=== PATIENT | female | born 1990 | race African-American/Black ===

== ENCOUNTER 2019-06-15 09:57 | Inpatient (IN) | payer BC, MEDICAID ==
[~2019-06-15] VITALS: Ht 157.5 cm; Wt 54.4 kg
[2019-06-15] MEDS ORDERED: ONDANSETRON HCL 4MG/2ML INJ IV STA (11:00)
[2019-06-15] MEDS ORDERED: MORPHINE SULFATE 4 MG/ML CPJ (NOT FOR IM USE) IV STA (11:00)
[2019-06-15] MEDS ORDERED: SODIUM CHLORIDE 0.9% 1,000 ML IV ONE (11:00)
[2019-06-15 11:29] LABS: CHLORIDE 110 mEq/L (98-107)
[2019-06-15 11:33] LABS: PROTHROMBIN TIME 10.8 sec (9.6-11.0)
[2019-06-15 11:45] LABS: BASOPHILS % 0.4 % (0.0-2.0); EOSINOPHILS % 0.7 % (0.0-5.0); HEMATOCRIT. 33.2 % (36.0-48.0); HEMOGLOBIN. 10.7 g/dL (12.0-16.0); LYMPHOCYTES % 23.9 % (20.0-50.0); MEAN CORPUSCULAR HEMOGLOBIN 23.3 pg (28.0-32.0); MEAN CORPUSCULAR VOLUME 72.4 fL (81.0-99.0); MONOCYTES % 3.7 % (2.0-8.0); NEUTROPHILS % 71.3 % (40.0-76.0); PLATELET 360 x1000/uL (130-400); RED BLOOD CELL COUNT 4.58 mill/uL (4.2-5.4); RED CELL DISTRIBUTION WIDTH 14.7 % (11.6-14.6)
[2019-06-15] MEDS ORDERED: KETOROLAC 30MG/ML VIAL IV ONE (12:00)
[2019-06-15 13:31] LABS: CLARITY URINE CLEAR (CLEAR); COLOR URINE YELLOW (YELLOW); KETONES URINE 1+ (NEGATIVE); LEUKOCYTE ESTERASE URINE NEGATIVE (NEGATIVE); NITRITE URINE NEGATIVE (NEGATIVE); OCCULT BLOOD URINE 1+ (NEGATIVE); PH URINE 6.5 (4.5-8.0); PROTEIN URINE NEGATIVE (NEGATIVE); SPECIFIC GRAVITY URINE 1.018 (1.005-1.030); UROBILINOGEN URINE 0.2 E.U./dL (0.2-1.0)
[2019-06-15 13:31] LABS: HCG SCREEN NEGATIVE
[2019-06-15] MEDS ORDERED: METOCLOPRAMIDE HCL 10MG/2ML VIAL IV ONE (14:00)
[2019-06-15] MEDS ORDERED: MORPHINE SULFATE 4 MG/ML CPJ (NOT FOR IM USE) IV ONE (14:00)
[2019-06-15] MEDS ORDERED: POTASSIUM CHLORIDE 20MEQ TABLET SR PO NR ×2 (16:30→18:00)
[2019-06-15] MEDS ORDERED: ACETAMINOPHEN 325MG TABLET PO PRN (16:30)
[2019-06-15] MEDS: MORPHINE SULFATE 2 MG/ML CPJ (NOT FOR IM USE) IV PRN ×2 (17:40→22:12)
[2019-06-15 20:00] VITALS: BP 118/79
[2019-06-15] MEDS: ONDANSETRON HCL 4MG/2ML INJ IV PRN (22:12)
[2019-06-16] VITALS (7 sets, daily range): BP systolic 98–159; BP diastolic 52–91
[2019-06-16] MEDS: MORPHINE SULFATE 2 MG/ML CPJ (NOT FOR IM USE) IV PRN ×3 (03:07→12:51)
[2019-06-16] MEDS: DEXT 5%/0.45% NACL 1000ML 1,000 ML IV SCH ×3 (03:15→22:01)
[2019-06-16 06:16] LABS: CHLORIDE 106 mEq/L (98-107)
[2019-06-16 10:03] LABS: *BARBITURATES SCREEN URINE NEGATIVE (NEGATIVE); *BENZODIAZEPINES SCREEN URINE NEGATIVE (NEGATIVE)
[2019-06-16 10:04] LABS: METHADONE URINE SCREEN NEGATIVE (NEGATIVE); PHENCYCLIDINE URINE SCREEN NEGATIVE (NEGATIVE)
[2019-06-16 10:11] LABS: *COCAINE SCREEN URINE NEGATIVE (NEGATIVE)
[2019-06-16 10:18] LABS: *AMPHETAMINES SCREEN URINE NEGATIVE (NEGATIVE)
[2019-06-16 10:25] LABS: CANNABINOID URINE SCREEN PRESUMTIVE POSITIVE (NEGATIVE); OPIATES URINE SCREEN PRESUMTIVE POSITIVE (NEGATIVE)
[2019-06-16 11:37] LABS: BASOPHILS % 0.1 % (0.0-2.0); EOSINOPHILS % 0.2 % (0.0-5.0); HEMATOCRIT. 31.4 % (36.0-48.0); HEMOGLOBIN. 10.1 g/dL (12.0-16.0); LYMPHOCYTES % 13.3 % (20.0-50.0); MEAN CORPUSCULAR HEMOGLOBIN 23.1 pg (28.0-32.0); MEAN CORPUSCULAR VOLUME 71.7 fL (81.0-99.0); MEAN PLATELET VOLUME 8.1 fl (7.4-10.4); NEUTROPHILS % 80.4 % (40.0-76.0); PLATELET 319 x1000/uL (130-400); RED BLOOD CELL COUNT 4.37 mill/uL (4.2-5.4); RED CELL DISTRIBUTION WIDTH 14.9 % (11.6-14.6)
[2019-06-16] MEDS: LEVOFLOXACIN 500MG PREMIX 100 ML IV SCH (18:00)
[2019-06-16] MEDS: MORPHINE SULFATE 4 MG/ML CPJ (NOT FOR IM USE) IV PRN ×2 (18:01→21:55)
[2019-06-16] MEDS: ONDANSETRON HCL 4MG/2ML INJ IV PRN (21:54)
[2019-06-16] MEDS: METRONIDAZOLE 500 MG PREMIX 100 ML IV SCH (22:02)
[2019-06-17] VITALS: BP 101/61
[2019-06-17 04:00] VITALS: BP 101/71
[2019-06-17 06:28] LABS: BASOPHILS % 0.2 % (0.0-2.0); EOSINOPHILS % 0.8 % (0.0-5.0); HEMATOCRIT. 29.7 % (36.0-48.0); HEMOGLOBIN. 9.7 g/dL (12.0-16.0); LYMPHOCYTES % 29.8 % (20.0-50.0); MEAN CORPUSCULAR HEMOGLOBIN 23.5 pg (28.0-32.0); MEAN PLATELET VOLUME 8.1 fl (7.4-10.4); MONOCYTES % 7.6 % (2.0-8.0); NEUTROPHILS % 61.6 % (40.0-76.0); PLATELET 326 x1000/uL (130-400); RED BLOOD CELL COUNT 4.13 mill/uL (4.2-5.4); RED CELL DISTRIBUTION WIDTH 14.7 % (11.6-14.6)
[2019-06-17] MEDS: METRONIDAZOLE 500 MG PREMIX 100 ML IV SCH ×3 (06:41→23:18)
[2019-06-17 07:21] LABS: CHLORIDE 106 mEq/L (98-107)
[2019-06-17 08:00] VITALS: BP 101/62
[2019-06-17] MEDS: DEXT 5%/0.45% NACL 1000ML 1,000 ML IV SCH (08:50)
[2019-06-17] MEDS: MORPHINE SULFATE 4 MG/ML CPJ (NOT FOR IM USE) IV PRN (08:51)
[2019-06-17] MEDS: ONDANSETRON HCL 4MG/2ML INJ IV PRN ×2 (11:10→23:25)
[2019-06-17] MEDS ORDERED: POTASSIUM CHLORIDE 20MEQ TABLET SR PO SCH (11:30)
[2019-06-17 12:00] VITALS: BP 147/76
[2019-06-17] MEDS: HYDROMORPHONE HCL/PF 2MG/ML CPJ IV PRN ×2 (12:19→19:57)
[2019-06-17 16:00] VITALS: BP 105/61
[2019-06-17] MEDS: LEVOFLOXACIN 500MG PREMIX 100 ML IV SCH (16:59)
[2019-06-17 20:00] VITALS: BP 122/78
[2019-06-18] VITALS: BP 121/74
[2019-06-18] MEDS: HYDROMORPHONE HCL/PF 2MG/ML CPJ IV PRN (00:11)
[2019-06-18 04:00] VITALS: BP_SYST 102; BP_SYST 170; BP_DIAS 54; BP_DIAS 62
[2019-06-18] MEDS: METRONIDAZOLE 500 MG PREMIX 100 ML IV SCH (06:30)
[2019-06-18 07:35] LABS: CHLORIDE 106 mEq/L (98-107)
[2019-06-18 07:41] LABS: TOTAL IRON BINDING CAPACITY 320 ug/dL (250-450)
[2019-06-18 07:48] LABS: BASOPHILS % 0.3 % (0.0-2.0); EOSINOPHILS % 1.6 % (0.0-5.0); HEMATOCRIT. 30.8 % (36.0-48.0); HEMOGLOBIN. 10.1 g/dL (12.0-16.0); MEAN CORPUSCULAR HEMOGLOBIN 23.5 pg (28.0-32.0); MEAN CORPUSCULAR VOLUME 71.8 fL (81.0-99.0); MEAN PLATELET VOLUME 7.8 fl (7.4-10.4); MONOCYTES % 7.3 % (2.0-8.0); NEUTROPHILS % 64.8 % (40.0-76.0); PLATELET 336 x1000/uL (130-400); RED BLOOD CELL COUNT 4.28 mill/uL (4.2-5.4); RED CELL DISTRIBUTION WIDTH 14.3 % (11.6-14.6)
[2019-06-18 08:00] VITALS: BP 112/68
[2019-06-18] MEDS: DEXT 5%/0.45% NACL 1000ML 1,000 ML IV SCH (10:00)
[2019-06-18 11:38] VITALS: BP 116/61
[2019-06-18 12:39] VITALS: BP 116/61
== END 2019-06-18 13:49 | disposition home or self-care (01) | DRG 392 ==
LOC: ER 09:57 → ENRESERV 16:10 → 6EST 17:32
PROVIDERS: ADMIT Internal Medicine; ATTEND Internal Medicine
DX: K52.9 Noninfective gastroenteritis and colitis, unspecified (principal); E87.6 Hypokalemia; E87.8 Other disorders of electrolyte and fluid balance, not elsewhere classified; F12.90 Cannabis use, unspecified, uncomplicated; D50.9 Iron deficiency anemia, unspecified; I10 Essential (primary) hypertension; Z90.49 Acquired absence of other specified parts of digestive tract
CPT/HCPCS: 36415; 74176; 80048; 80305; 82728; 83036; 83540; 83550; 84145; 84703; 96374; 99285; C1893; J1170; J1885; J1956; J2270; J2405; J2765; J3490; J7030

== ENCOUNTER 2019-08-06 17:36 | Emergency (ER) | payer BC, MEDICAID ==
[~2019-08-06] VITALS: Ht 157.5 cm; Wt 57.0 kg
[2019-08-06] MEDS ORDERED: MORPHINE SULFATE 4 MG/ML CPJ (NOT FOR IM USE) IV STA (19:59)
[2019-08-06] MEDS ORDERED: SODIUM CHLORIDE 0.9% 1,000 ML IV ONE (19:59)
[2019-08-06] MEDS ORDERED: FAMOTIDINE 20MG/2ML VIAL IV STA (19:59)
[2019-08-06] MEDS ORDERED: ONDANSETRON HCL 4MG/2ML INJ IV STA (19:59)
[2019-08-06 20:32] LABS: BASOPHILS % 0.3 % (0.0-2.0); EOSINOPHILS % 0.1 % (0.0-5.0); HEMATOCRIT. 34.9 % (36.0-48.0); HEMOGLOBIN. 11.3 g/dL (12.0-16.0); MEAN CORPUSCULAR HEMOGLOBIN 23.4 pg (28.0-32.0); MEAN PLATELET VOLUME 8.1 fl (7.4-10.4); MONOCYTES % 1.4 % (2.0-8.0); NEUTROPHILS % 89.2 % (40.0-76.0); PLATELET 309 x1000/uL (130-400); RED BLOOD CELL COUNT 4.84 mill/uL (4.2-5.4); RED CELL DISTRIBUTION WIDTH 14.5 % (11.6-14.6)
[2019-08-06 20:33] LABS: CHLORIDE 106 mEq/L (98-107)
[2019-08-06 20:34] LABS: PROTHROMBIN TIME 10.7 sec (9.6-11.0)
[2019-08-06 20:36] LABS: HCG SCREEN NEGATIVE
[2019-08-06 20:37] LABS: ETHANOL BLOOD < 10 mg/dL
[2019-08-06 21:01] LABS: CLARITY URINE CLEAR (CLEAR); COLOR URINE YELLOW (YELLOW); KETONES URINE TRACE (NEGATIVE); LEUKOCYTE ESTERASE URINE NEGATIVE (NEGATIVE); NITRITE URINE NEGATIVE (NEGATIVE); OCCULT BLOOD URINE 1+ (NEGATIVE); PH URINE 7.5 (4.5-8.0); PROTEIN URINE TRACE (NEGATIVE); UROBILINOGEN URINE 0.2 E.U./dL (0.2-1.0)
[2019-08-06 21:21] LABS: *COCAINE SCREEN URINE NEGATIVE (NEGATIVE); METHADONE URINE SCREEN NEGATIVE (NEGATIVE)
[2019-08-06 21:22] LABS: *AMPHETAMINES SCREEN URINE NEGATIVE (NEGATIVE); *BARBITURATES SCREEN URINE NEGATIVE (NEGATIVE); *BENZODIAZEPINES SCREEN URINE NEGATIVE (NEGATIVE); PHENCYCLIDINE URINE SCREEN NEGATIVE (NEGATIVE)
[2019-08-06 21:28] LABS: CANNABINOID URINE SCREEN PRESUMTIVE POSITIVE (NEGATIVE); OPIATES URINE SCREEN PRESUMTIVE POSITIVE (NEGATIVE)
[2019-08-07] MEDS ORDERED: KETOROLAC 30MG/ML VIAL IV ONE (00:30)
[2019-08-07 01:37] VITALS: BP 141/78
[2019-08-07] MEDS ORDERED: MAGNESIUM/ALUMINUM HYDROXIDE/SIMETHICONE 30ML UDC PO ONE (01:45)
== END 2019-08-07 02:00 | disposition home or self-care (01) ==
LOC: ER 17:36
DX: R10.13 Epigastric pain (principal); R11.2 Nausea with vomiting, unspecified; D64.9 Anemia, unspecified; I10 Essential (primary) hypertension; F17.200 Nicotine dependence, unspecified, uncomplicated; F12.10 Cannabis abuse, uncomplicated; Z90.49 Acquired absence of other specified parts of digestive tract
CPT/HCPCS: 36415; 74176; 80053; 80305; 80320; 81003; 81025; 83690; 84703; 85025; 85610; 96361; 96374; 96375; 99291; 99406; J1885; J2270; J2405; J3490; J7030; Z7610; G0480

== ENCOUNTER 2019-08-07 02:44 | Emergency (ER) | payer BC, MEDICAID ==
[~2019-08-07] VITALS: Ht 157.5 cm; Wt 58.0 kg
[2019-08-07] MEDS ORDERED: KETOROLAC 30MG/ML VIAL IM STA (06:26)
[2019-08-07 07:18] LABS: BASOPHILS % 0.3 % (0.0-2.0); EOSINOPHILS % 0.1 % (0.0-5.0); HEMATOCRIT. 32.4 % (36.0-48.0); HEMOGLOBIN. 10.6 g/dL (12.0-16.0); LYMPHOCYTES % 13.1 % (20.0-50.0); MEAN CORPUSCULAR HEMOGLOBIN 23.5 pg (28.0-32.0); MEAN CORPUSCULAR VOLUME 71.8 fL (81.0-99.0); MEAN PLATELET VOLUME 7.7 fl (7.4-10.4); MONOCYTES % 5.1 % (2.0-8.0); NEUTROPHILS % 81.4 % (40.0-76.0); PLATELET 290 x1000/uL (130-400); RED BLOOD CELL COUNT 4.51 mill/uL (4.2-5.4); RED CELL DISTRIBUTION WIDTH 14.2 % (11.6-14.6)
[2019-08-07 07:25] LABS: CHLORIDE 107 mEq/L (98-107)
[2019-08-07 09:03] VITALS: BP 120/85
== END 2019-08-07 09:10 | disposition home or self-care (01) ==
LOC: ER 02:44
DX: R10.13 Epigastric pain (principal); R11.2 Nausea with vomiting, unspecified; F17.200 Nicotine dependence, unspecified, uncomplicated; F12.10 Cannabis abuse, uncomplicated; Z90.49 Acquired absence of other specified parts of digestive tract
CPT/HCPCS: 36415; 71045; 76705; 80053; 81025; 83690; 85025; 96372; 99284; J1885; Z7610

== ENCOUNTER 2019-10-01 17:49 | Emergency (ER) | payer BC, MEDICAID ==
[~2019-10-01] VITALS: Ht 167.6 cm; Wt 79.0 kg
[2019-10-01] MEDS ORDERED: MORPHINE SULFATE 4 MG/ML CPJ (NOT FOR IM USE) IV STA (18:07)
[2019-10-01] MEDS ORDERED: SODIUM CHLORIDE 0.9% 1,000 ML IV ONE (18:07)
[2019-10-01] MEDS ORDERED: ONDANSETRON HCL 4MG/2ML INJ IV STA (18:07)
[2019-10-01 18:43] LABS: BASOPHILS % 0.2 % (0.0-2.0); EOSINOPHILS % 0.1 % (0.0-5.0); HEMATOCRIT. 36.1 % (36.0-48.0); HEMOGLOBIN. 11.8 g/dL (12.0-16.0); LYMPHOCYTES % 16.4 % (20.0-50.0); MEAN CORPUSCULAR HEMOGLOBIN 23.1 pg (28.0-32.0); MEAN CORPUSCULAR VOLUME 70.8 fL (81.0-99.0); MEAN PLATELET VOLUME 7.6 fl (7.4-10.4); MONOCYTES % 4.4 % (2.0-8.0); NEUTROPHILS % 78.9 % (40.0-76.0); PLATELET 372 x1000/uL (130-400); RED BLOOD CELL COUNT 5.09 mill/uL (4.2-5.4); RED CELL DISTRIBUTION WIDTH 14.4 % (11.6-14.6)
[2019-10-01 18:47] LABS: CHLORIDE 104 mEq/L (98-107)
[2019-10-01 18:49] LABS: INR 1.1; PROTHROMBIN TIME 11.1 sec (9.6-11.0)
[2019-10-01] MEDS ORDERED: POTASSIUM CHLORIDE 20MEQ TABLET SR PO NR (19:45)
[2019-10-01] MEDS ORDERED: KETOROLAC 30MG/ML VIAL IV NR (19:45)
[2019-10-01 20:34] VITALS: BP 115/79
== END 2019-10-01 20:41 | disposition home or self-care (01) ==
LOC: ER 17:49
DX: K52.9 Noninfective gastroenteritis and colitis, unspecified (principal); F12.10 Cannabis abuse, uncomplicated; Z90.49 Acquired absence of other specified parts of digestive tract
CPT/HCPCS: 36415; 80053; 83690; 85025; 85610; 96374; 96375; 99283; J1885; J2270; J2405; J7030

== ENCOUNTER 2020-01-31 01:22 | Emergency (ER) | payer BC, MEDICAID ==
[~2020-01-31] VITALS: Ht 157.5 cm; Wt 54.0 kg
[2020-01-31] MEDS ORDERED: KETOROLAC 30MG/ML VIAL IV STA ×2 (03:13→07:37)
[2020-01-31] MEDS ORDERED: SODIUM CHLORIDE 0.9% 1,000 ML IV ONE ×2 (03:13→06:25)
[2020-01-31] MEDS ORDERED: ONDANSETRON HCL 4MG/2ML INJ IV ONE ×2 (03:15→06:30)
[2020-01-31] MEDS ORDERED: FAMOTIDINE 20MG/2ML VIAL IV ONE (03:15)
[2020-01-31 03:35] LABS: BASOPHILS % 0.6 % (0.0-2.0); EOSINOPHILS % 0.4 % (0.0-5.0); HEMATOCRIT. 31.7 % (36.0-48.0); HEMOGLOBIN. 10.7 g/dL (12.0-16.0); LYMPHOCYTES % 19.7 % (20.0-50.0); MEAN CORPUSCULAR HEMOGLOBIN 23.9 pg (28.0-32.0); MEAN CORPUSCULAR VOLUME 70.9 fL (81.0-99.0); MEAN PLATELET VOLUME 7.7 fl (7.4-10.4); MONOCYTES % 6.9 % (2.0-8.0); NEUTROPHILS % 72.4 % (40.0-76.0); PLATELET 334 x1000/uL (130-400); RED BLOOD CELL COUNT 4.47 mill/uL (4.2-5.4); RED CELL DISTRIBUTION WIDTH 14.3 % (11.6-14.6)
[2020-01-31 03:42] LABS: PROTHROMBIN TIME 10.7 sec (9.6-11.0)
[2020-01-31 03:43] LABS: CHLORIDE 107 mEq/L (98-107)
[2020-01-31 04:52] LABS: CLARITY URINE CLOUDY (CLEAR); COLOR URINE YELLOW (YELLOW); KETONES URINE 1+ (NEGATIVE); LEUKOCYTE ESTERASE URINE NEGATIVE (NEGATIVE); NITRITE URINE NEGATIVE (NEGATIVE); OCCULT BLOOD URINE NEGATIVE (NEGATIVE); PH URINE 7.5 (4.5-8.0); PROTEIN URINE NEGATIVE (NEGATIVE); SPECIFIC GRAVITY URINE 1.019 (1.005-1.030); UROBILINOGEN URINE 0.2 E.U./dL (0.2-1.0)
[2020-01-31] MEDS ORDERED: MORPHINE SULFATE 4 MG/ML CPJ (NOT FOR IM USE) IV STA (06:25)
[2020-01-31] MEDS ORDERED: MAGNESIUM/ALUMINUM HYDROXIDE/SIMETHICONE 30ML UDC PO ONE (06:30)
[2020-01-31 08:49] VITALS: BP 143/74
== END 2020-01-31 09:24 | disposition home or self-care (01) ==
LOC: ER 01:22
DX: R10.13 Epigastric pain (principal); K29.70 Gastritis, unspecified, without bleeding; R11.10 Vomiting, unspecified; F12.10 Cannabis abuse, uncomplicated
CPT/HCPCS: 36415; 80053; 81003; 81025; 83690; 85025; 85610; 96361; 96374; 96375; 96376; 99285; J1885; J2270; J2405; J3490; J7030